=== PATIENT | male | born 1945 | race Caucasian/White ===

== ENCOUNTER 2018-09-19 10:01 | Outpatient (CLI) | payer MEDICARE, OTHER ==
--- NOTE | 2018-09-19 10:58 | RAD ---
XR Lumbar Spine Min 4 View History: Lumbar spondylosis Comparison: None. Findings: Mild dextro scoliosis of the lumbar spine. Multilevel degenerative disc space height loss, greatest at L2-3, L3-4, L4-5. The L5 vertebra at the lumbosacral transitional vertebra. There is degenerative 2 mm retrolisthesis of L2 over L3 with slight interval increase with extension. In neutral position there is 3 mm L1 over L2 retrolisthesis without significant translation with flexion or extension. 2 mm L3 over L4 anterolisthesis is no significant translation with flexion or e xtension. In the neutral position no significant listhesis of L4 over L5 although with flexion there is 3 mm an terolisthesis. Severe multilevel degenerative facet arthropathy. Multilevel degenerative disc space height loss. Int erspinous narrowing throughout the lumbar spine with cortical sclerosis and subcortical cysts. Impression: Severe degenerative changes and multilevel listhesis with translation of L2/L3 and L4/L5.
== END 2018-09-19 10:02 | disposition home or self-care (01) ==
LOC: RAD 10:01
PROVIDERS: ATTEND Nurse Practitioner Family
DX: M47.816 Spondylosis without myelopathy or radiculopathy, lumbar region (principal); M43.16 Spondylolisthesis, lumbar region
CPT/HCPCS: 72110

== ENCOUNTER 2019-03-01 18:30 | Outpatient (CLI) | payer MEDICARE, OTHER | END 2019-03-01 18:31 | disposition home or self-care (01) | LOC: SLEEPLAB 18:30 | PROVIDERS: ATTEND Internal Medicine | DX: G47.33 Obstructive sleep apnea (adult) (pediatric) (principal); R53.83 Other fatigue; I10 Essential (primary) hypertension | CPT/HCPCS: 95806 ==

== ENCOUNTER 2019-03-14 19:30 | Outpatient (CLI) | payer MEDICARE, OTHER | END 2019-03-14 19:31 | disposition home or self-care (01) | LOC: SLEEPLAB 19:30 | PROVIDERS: ATTEND Internal Medicine | DX: G47.33 Obstructive sleep apnea (adult) (pediatric) (principal); R53.83 Other fatigue; I10 Essential (primary) hypertension; G47.31 Primary central sleep apnea | CPT/HCPCS: 95811 ==

== ENCOUNTER 2020-08-19 09:45 | Outpatient (CLI) | payer OTHER | END 2020-08-19 09:46 | disposition home or self-care (01) | LOC: DTY/OP 09:45 | PROVIDERS: ATTEND Internal Medicine | DX: R63.5 Abnormal weight gain (principal) | CPT/HCPCS: 97802 ==